=== PATIENT | female | born 1955 | race Two or more races ===

== ENCOUNTER 2021-06-08 20:04 | Emergency (ER) | payer MEDICAID, MEDICARE ==
[2021-06-08 21:17] VITALS: BP 153/79; PULSE 85; RESP 15; TEMP 97.8
--- NOTE | 2021-06-08 21:35 | XR ---
EXAMINATION TYPE: XR soft tissue neck DATE OF EXAM: 06/08/2021 COMPARISON: NONE HISTORY: Something stuck in the throat TECHNIQUE: 2 views FINDINGS: Cervical vertebra have normal alignment. Posterior elements are intact. There is some degen erative mild disc space narrowing at C5-6 with spurring. The epiglottis is normal. Prevertebral soft tissues are intact. Tonsils and adenoids appear normal. Subglottic trachea appears normal. IMPRESSION: Negative cervical soft tissue exam.
--- NOTE | 2021-06-08 22:41 | ED ---
ENT HPI - General Chief complaint: ENT Stated complaint: Sore Throat Time Seen by Provider: 06/08/21 22:21 Source: patient, RN notes reviewed Mode of arrival: ambulatory - History of Present Illness Initial comments: This is a 66-year-old female who presents to the emergency department with concerns of having something stuck in her throat. States that she ate chicken last night, and is worried that she may have a chicken bone stuck in her throat. She began experiencing this sensation this morning. Denies any difficulty breathing, difficulty swallowing, a sore throat, or pain with swallowing. She has had this sensation before, however no foreign bodies have been found in the throat. Reports some history of acid reflux, however she does not treat this. Denies any fevers, chills, abdominal pain, or nausea. MD complaint: foreign body Onset/Timin -: days(s) Location: throat Consistency: constant Improves with: none Worsens with: none - Related Data Home Medications Medication Instructions Recorded Confirmed FLUoxetine HCL [PROzac] 20 mg PO DAILY 10/27/15 10/27/15 Lisinopril-Hctz 20-12.5 mg 1 tab PO DAILY 10/27/15 10/27/15 [Zestoretic 20-12.5] Simvastatin [Zocor] 20 mg PO HS 10/27/15 10/27/15 hydrOXYzine pamoate [Vistaril] 50 mg PO HS 10/27/15 10/27/15 risperiDONE 1 mg PO HS 10/27/15 10/27/15 Previous Rx's Medication Instructions Recorded Atorvastatin [Lipitor] 20 mg PO HS #30 tab 10/31/15 FLUoxetine HCL [PROzac] 20 mg PO DAILY #30 cap 10/31/15 LORazepam [Ativan] 0.5 mg PO QID PRN #30 tab 10/31/15 risperiDONE [RisperDAL] 1 mg PO TID #90 tab 10/31/15 Allergies Allergy/AdvReac Type Severity Reaction Status Date / Time No Known Allergies Allergy Verified 06/08/21 21:12 Review of Systems ROS Statement: Those systems with pertinent positive or pertinent negative responses have been documented in the HPI. ROS Other: All systems not noted in ROS Statement are negative. Constitutional: Denies: fever, chills ENT: Denies: ear pain, throat pain Respiratory: Denies: cough, dyspnea Cardiovascular: Denies: chest pain, palpitations Gastrointestinal: Denies: abdominal pain, nausea, vomiting, diarrhea Skin: Denies: rash Neurological: Denies: headache Past Medical History Past Medical History: Hyperlipidemia, Hypertension History of Any Multi-Drug Resistant Organisms: None Reported Past Surgical History: Tubal Ligation Additional Past Surgical History / Comment(s): pin in left wrist Past Anesthesia/Blood Transfusion Reactions: No Reported Reaction Past Psychological History: Anxiety, Depression Smoking Status: Former smoker Past Alcohol Use History: None Reported Past Drug Use History: None Reported - Past Family History Father Additional Family Medical History / Comment(s): CABG, CAD in his 60s Mother Additional Family Medical History / Comment(s): No reported health issues mom 84 alive Brother(s) Family Medical History: No Reported History Sister(s) Family Medical History: Cancer (Gastrointestinal) Daughter(s) Family Medical History: No Reported History General Exam Limitations: no limitations General appearance: alert, in no apparent distress Head exam: Present: atraumatic, normocephalic, normal inspection ENT exam: Present: normal exam, normal oropharynx, mucous membranes moist Neck exam: Present: normal inspection. Absent: tenderness, meningismus, lymphadenopathy Respiratory exam: Present: normal lung sounds bilaterally. Absent: respiratory distress, wheezes, rales, rhonchi, stridor Cardiovascular Exam: Present: regular rate, normal rhythm, normal heart sounds. Absent: systolic murmur, diastolic murmur, rubs, gallop, clicks Neurological exam: Present: alert, oriented X3, CN II-XII intact Psychiatric exam: Present: normal affect, normal mood Skin exam: Present: warm, dry, intact, normal color. Absent: rash Course Vital Signs 06/08/21 21:13 Temperature 97.8 F Pulse Rate 85 Respiratory 15 Rate Blood Pressure 153/79 O2 Sat by Pulse 96 Oximetry Medical Decision Making - Medical Decision Making This is a 66-year-old female who presents to the emergency department with globus pharyngeus. X-ray of the soft tissue of the neck was obtained and revealed no abnormalities. Discussed with the patient that she may have silent reflux, causing the sensation. I offered the patient a dose of Zantac, however she declined due to the studies that have found a possible link to an increased risk of cancer. Patient declines any further workup, states that she simply wan kalpesh an x-ray of her neck. Return precautions reviewed in depth, the patient is instructed to return to the emergency department if symptoms worsen or do not improve. Patient verbalized understanding. This case was discussed in detail with the attending ED physician. Presentation, findings, and treatment plan discussed in detail as well. - Radiology Data Radiology results: report reviewed, image reviewed Disposition Clinical Impression: Globus pharyngeus Disposition: HOME SELF-CARE Instructions (If sedation given, give patient instructions): Pharyngitis (ED), Foreign Body in Pharynx (ED) Additional Instructions: Return to the emergency department if your symptoms worsen or do not improve. Follow-up with your primary care provider in 1 to 2 days. Is patient prescribed a controlled substance at d/c from ED?: No Referrals: None,Stated [Primary Care Provider] - 1-2 days
== END 2021-06-08 22:50 | disposition home or self-care (01) ==
LOC: EC 20:04
DX: F45.8 Other somatoform disorders (principal); I10 Essential (primary) hypertension; E78.5 Hyperlipidemia, unspecified; Z79.899 Other long term (current) drug therapy; Z87.891 Personal history of nicotine dependence
CPT/HCPCS: 70360; 99283

== ENCOUNTER → 2021-06-26 | Outpatient (CLI) | payer MEDICARE, MEDICAID ==
[2021-06-26 14:24] VITALS: BP 147/73; PULSE 81; RESP 16; TEMP 98.3
--- NOTE | 2021-06-26 15:20 | P.GSHP ---
History of Present Illness H&P Date: 06/26/21 Lissett is a 66 year old white female [facility] in [facility] regarding the radiographic abnormality in her right breast. She underwent a bilateral mammogram earlier this year on 332 which revealed an area of nodularity in the right breast for which further evaluation was recommended. No lesions of concern were identified in the left breast. Stable calcifications were seen in the right breast. The patient then underwent a right breast ultrasound on 332 which revealed a 0.2 x 0.2 cm lesion in the breast. This was not felt to correspond with a mammographic measurement of a 6 x 6 mm lesion and a stereotactic core biopsy of the nodular area was recommended. The patient does not feel any new lumps masses or nodules of concern in either breast. She is not complaining of any nipple discharge or skin changes. Caffiene: 2 cups coffee/day nicotine: stopped many years ago used to smoke 1/PPD chocolate: occasionally BCP: 10 years hormones: none Family History: patient: uterine cancer Hormonal History: menarche: 10 , breast fed: no, age at :18's menopause: 48 hormones: none Surgical History: hysterectomy done for cancer Medical History: HTN high cholesterol Social History: HEENT: Former smoker Alcohol: Negative Drugs: Negative - Constitutional Constitutional: Denies chills, Denies fever - EENT Eyes: denies blurred vision, denies pain Ears: bilateral: decreased hearing, tinnitus Ears, nose, mouth and throat: Denies headache, Denies sore throat - Breasts Breasts: bilateral: as per HPI - Cardiovascular Cardiovascular: Denies chest pain, Denies shortness of breath - Respiratory Respiratory: Denies cough, Denies 7 - Gastrointestinal Gastrointestinal: Denies abdominal pain, Denies diarrhea, Denies nausea, Denies vomiting - Genitourinary (Female) Genitourinary: Denies dysuria, Denies hematuria - Menstruation Menstruation: Reports post hysterectomy - Musculoskeletal Musculoskeletal: Denies myalgias - Integumentary Integumentary: Denies pruritus, Denies rash - Neurological Neurological: Denies numbness, Denies weakness - Psychiatric Psychiatric: Reports anxiety, Reports depression - Endocrine Endocrine: Denies fatigue, Denies weight change - Hematologic/Lymphatic Comment: none - Allergic/Immunologic Allergic/Immunologic: Reports as per HPI Past Medical History Past Medical History: Hyperlipidemia, Hypertension History of Any Multi-Drug Resistant Organisms: None Reported Past Surgical History: Tubal Ligation Additional Past Surgical History / Comment(s): pin in left wrist Past Anesthesia/Blood Transfusion Reactions: No Reported Reaction Past Psychological History: Anxiety, Depression Smoking Status: Former smoker Past Alcohol Use History: None Reported Past Drug Use History: None Reported - Past Family History Father Additional Family Medical History / Comment(s): CABG, CAD in his 60s Mother Additional Family Medical History / Comment(s): No reported health issues mom 84 alive Brother(s) Family Medical History: No Reported History Sister(s) Family Medical History: Cancer Daughter(s) Family Medical History: No Reported History Medications and Allergies Home Medications Medication Instructions Recorded Confirmed Type Lisinopril-Hctz 20-12.5 mg 1 tab PO DAILY 10/27/15 06/26/21 History [Zestoretic 20-12.5] Simvastatin [Zocor] 20 mg PO HS 10/27/15 06/26/21 History hydrOXYzine pamoate [Vistaril] 50 mg PO HS 10/27/15 06/26/21 History risperiDONE 1 mg PO HS 10/27/15 06/26/21 History Atorvastatin [Lipitor] 20 mg PO HS #30 tab 10/31/15 06/26/21 Rx LORazepam [Ativan] 0.5 mg PO QID PRN #30 tab 10/31/15 06/26/21 Rx risperiDONE [RisperDAL] 1 mg PO TID #90 tab 10/31/15 06/26/21 Rx Allergies Allergy/AdvReac Type Severity Reaction Status Date / Time No Known Allergies Allergy Verified 06/26/21 14:15 Surgical - Exam Vital Signs Temp Pulse Resp BP Pulse Ox 98.3 F 81 16 147/73 97 06/26/21 14:18 06/26/21 14:18 06/26/21 14:18 06/26/21 14:18 06/26/21 14:18 BMI: 30.9 - General no distress - Eyes normal ocular movement - Neck trachea midline - Respiratory normal respiratory effort, clear to auscultation - Cardiovascular Rhythm: regular Heart Sounds: normal: S1, S2 - Abdomen Abdomen: soft - Integumentary normal turgor - Neurologic no disoriented, no combative - Musculoskeletal normal gait - Psychiatric oriented to time, oriented to person, oriented to place, speech is normal, memory intact Breast Exam: BRA: does not wear one inspection: Bilateral grade 3 ptosis, breast approximately at DD Palpation: Right breast: multi-positional exam fibrocystic changes or dominant masses or nodules of concern Right axilla: No adenopathy of concern Left breast: Positional exam fibrocystic changes no dominant masses or nodules of concern Left axilla: No adenopathy of concern Results Mammogram and ultrasound reviewed with Dr. Jones Assessment and Plan Assessment: Impression: Abnormal right breast mammogram with nodularity noted not seen to be concordant with ultrasound findings Fibrocystic breast changes Plan: Stereotactic core biopsy of nodule of concern and right breast Follow-up nodule seen on ultrasound with 6 month ultrasound study; nodule does not appear to be that which is seen on the mammogram this was reviewed with Dr. Jones Request prior mammograms to evaluate calcifications noted on mammogram of 3322 CC: [facility] a stereotactic core biopsy discussed with the patient. She understands and wishes to proceed
== END | disposition home or self-care (01) ==
LOC: WWCWWP 13:47
PROVIDERS: ATTEND Surgery
DX: Z53.9 Procedure and treatment not carried out, unspecified reason (principal)

== ENCOUNTER → 2021-07-23 | Day surgery (SDC) | payer MEDICARE, OTHER ==
[2021-07-23 07:30] VITALS: BP 134/74; PULSE 81; RESP 16; TEMP 98
--- NOTE | 2021-07-23 08:36 | P.PN ---
Progress Note - Text Progress Note Date: 07/23/21 The patient was scheduled for a stereotactic core biopsy of the right breast today. The procedure was canceled as the nodule which was to be biopsied was not able to be seen. She will have a repeat right breast mammogram in 6 months with an appointment at that time.
--- NOTE | 2021-07-23 13:46 | MM ---
The patient was scheduled for a stereotactic core biopsy of the right breast today. The procedure was canceled as the nodule which was to be biopsied was not able to be seen. She will have a repeat right breast mammogram in 6 months with an appointment at that time. DOUG
== END ==
LOC: RADMAMWWP 07:00
PROVIDERS: ATTEND Surgery
DX: R92.8 Other abnormal and inconclusive findings on diagnostic imaging of breast (principal); Z53.8 Procedure and treatment not carried out for other reasons

== ENCOUNTER 2021-07-29 09:49 | Emergency (ER) | payer MEDICARE, OTHER ==
[2021-07-29 09:56] VITALS: RESP 16
--- NOTE | 2021-07-29 10:27 | ED ---
General Adult HPI - General Chief complaint: Psychiatric Symptoms Stated complaint: Mental Health Eval Time Seen by Provider: 07/29/21 10:09 Source: patient, RN notes reviewed, old records reviewed Mode of arrival: wheelchair Limitations: no limitations - History of Present Illness Initial comments: 66-year-old female brought in for mental health evaluation. She has been petitioned for evaluation. She apparently has not been taking her medication as prescribed. She has not been sleeping. Patient admits to making homicidal statements but is unwilling to tell me who these were directed towards. She denies suicidal thoughts. Denies physical complaint. - Related Data Home Medications Medication Instructions Recorded Confirmed Lisinopril-Hctz 20-12.5 mg 1 tab PO DAILY 10/27/15 07/29/21 [Zestoretic 20-12.5] Atorvastatin [Lipitor] 20 mg PO HS 07/29/21 07/29/21 Calcium Carbonate [Calcium] 600 mg PO DAILY 07/29/21 07/29/21 Cholecalciferol [Vitamin D3 (25 25 mcg PO DAILY 07/29/21 07/29/21 Mcg = 1000 Iu)] Cyanocobalamin (Vitamin B-12) 1,000 mcg PO DAILY 07/29/21 07/29/21 [Vitamin B-12] Allergies Allergy/AdvReac Type Severity Reaction Status Date / Time No Known Allergies Allergy Verified 07/29/21 11:11 Review of Systems ROS Statement: Those systems with pertinent positive or pertinent negative responses have been documented in the HPI. ROS Other: All systems not noted in ROS Statement are negative. Past Medical History Past Medical History: Hyperlipidemia, Hypertension History of Any Multi-Drug Resistant Organisms: None Reported Past Surgical History: Tubal Ligation Additional Past Surgical History / Comment(s): pin in left wrist Past Anesthesia/Blood Transfusion Reactions: No Reported Reaction Past Psychological History: Anxiety, Depression Smoking Status: Former smoker Past Alcohol Use History: None Reported Past Drug Use History: None Reported - Past Family History Father Additional Family Medical History / Comment(s): CABG, CAD in his 60s Mother Additional Family Medical History / Comment(s): No reported health issues mom 84 alive Brother(s) Family Medical History: No Reported History Sister(s) Family Medical History: Cancer Daughter(s) Family Medical History: No Reported History General Exam Limitations: no limitations General appearance: alert, in no apparent distress Head exam: Present: atraumatic, normocephalic Eye exam: Present: normal appearance, PERRL ENT exam: Present: normal exam Neck exam: Present: normal inspection. Absent: tenderness, meningismus Respiratory exam: Present: normal lung sounds bilaterally. Absent: respiratory distress, wheezes Cardiovascular Exam: Present: regular rate, normal rhythm GI/Abdominal exam: Present: soft. Absent: distended, tenderness, guarding Neurological exam: Present: alert, normal gait. Absent: motor sensory deficit Psychiatric exam: Present: flat affect, homicidal ideation, other (Paranoid) Skin exam: Present: warm, dry, intact. Absent: cyanosis, diaphoretic Course Vital Signs 07/29/21 09:53 Temperature 98 F Pulse Rate 86 Respiratory 16 Rate Blood Pressure 154/84 O2 Sat by Pulse 98 Oximetry - Reevaluation(s) Reevaluation #1: 07/29/21 10:26 Patient is medically cleared for EPS. Medical Decision Making - Medical Decision Making 66-year-old female who had presented under court order petitioned. Patient has been calm and cooperative in the emergency department. She denies suicidal thoughts. She was evaluated by EPS in the case is discussed with the psychiatrist. [place] to be safe for discharge. She should follow-up as an outpatient. - Lab Data Lab Results 07/29/21 Range/Units 10:46 Urine Opiates Screen Not Detected (NotDetected) Ur Oxycodone Screen Not Detected (NotDetected) Urine Methadone Screen Not Detected (NotDetected) Ur Propoxyphene Screen Not Detected (NotDetected) Ur Barbiturates Screen Not Detected (NotDetected) U Tricyclic Antidepress Not Detected (NotDetected) Ur Phencyclidine Scrn Not Detected (NotDetected) Ur Amphetamines Screen Not Detected (NotDetected) U Methamphetamines Scrn Not Detected (NotDetected) U Benzodiazepines Scrn Not Detected (NotDetected) Urine Cocaine Screen Not Detected (NotDetected) U Marijuana (THC) Screen Not Detected (NotDetected) Disposition Clinical Impression: Depression Disposition: HOME SELF-CARE Condition: Fair Instructions (If sedation given, give patient instructions): Depression (ED) Additional Instructions: Please follow up with community mental health. Is patient prescribed a controlled substance at d/c from ED?: No Referrals: [facility] [Primary Care Provider] - 1-2 days Time of Disposition: 14:29
[2021-07-29 11:04] LABS: Amphetamine Screen,Urine Not Detected (NotDetected); Barbiturate Screen,Urine Not Detected (NotDetected); Benzodiazepines Screen,Urine Not Detected (NotDetected); Cocaine Screen,Urine Not Detected (NotDetected); Methadone Screen, Urine Not Detected (NotDetected); Opiate Screen,Urine Not Detected (NotDetected); Oxycodone Screen, Urine Not Detected (NotDetected); Phencyclidine Screen,Urine Not Detected (NotDetected); Tricyclic Antidepressant,Urine Not Detected (NotDetected); Urn Cannabinoid Scrn Not Detected (NotDetected)
[2021-07-29 14:40] VITALS: BP 190/81; PULSE 83; TEMP 97
== END 2021-07-29 14:40 | disposition home or self-care (01) ==
LOC: EC 09:49 → SUPCPDRO 09:49 → EC 14:40
DX: F32.A Depression, unspecified (principal); I10 Essential (primary) hypertension; Z87.891 Personal history of nicotine dependence
CPT/HCPCS: 80306; 82075; 99284

== ENCOUNTER → 2024-03-12 | Outpatient (CLI) | payer MEDICARE, OTHER ==
--- NOTE | 2024-03-13 15:10 | MM ---
Reason for Exam: Screening (asymptomatic). Last mammogram was performed 1 year(s) and 7 month(s) ago. Patient History: Menarche at age 14. First Full-Term at age 19. Left ovary removed at age 63. Right ovary removed at age 63. Hysterectomy at age 63. Postmenopausal. 07/23/2021, MG discontinued stereo core RT on the right side. Sister had breast cancer. Risk Values: Catrachita 5 year model risk: 3.0%. NCI Lifetime model risk: 8.7%. Prior Study Comparison: 11/18/2020 Bilateral MG screening mammo w CAD - 2, [facility]. 11/25/2020 Right Diagnostic Mammogram, [facility]. 08/02/2022 Bilateral MG 3D diag mammo w/cad PAT, [facility]. Tissue Density: The breasts are heterogeneously dense, which may obscure small masses. Findings: Analyzed By CAD. There is no suspicious group of microcalcifications or new suspicious mass in either breast. Overall Assessment: Benign, BI-RAD 2 Management: Screening Mammogram of both breasts in 1 year. . Patient should continue monthly self-breast exams. A clinical breast exam by your physician is recommended on an annual basis. This exam should not preclude additional follow-up of suspicious palpable abnormalities. Note on Catrachita scores and lifetime risk: 1. A Catrachita score greater than 3% is considered moderate risk. If this is the case, consider specialist referral to assess eligibility for a risk reducing agent. 2. If overall lifetime risk for the development of breast cancer is 20% or higher, the patient may qualify for future screening with alternating mammogram and breast MRI. [facility], , 03/13/2024 3:07 PM. Electronically signed and approved by: Colin Garcia M.D. Radiologis
== END | disposition home or self-care (01) ==
LOC: RADMAMWWP 13:43
PROVIDERS: ATTEND Family Medicine
DX: Z12.31 Encounter for screening mammogram for malignant neoplasm of breast (principal); Z90.722 Acquired absence of ovaries, bilateral; Z78.0 Asymptomatic menopausal state; Z80.3 Family history of malignant neoplasm of breast; R92.333 Mammographic heterogeneous density, bilateral breasts
CPT/HCPCS: 77063; 77067

== ENCOUNTER → 2024-08-08 | Outpatient (CLI) | payer MEDICARE, OTHER ==
--- NOTE | 2024-08-08 16:14 | CT ---
EXAMINATION TYPE: CT abdomen pelvis wo con DATE OF EXAM: 08/08/2024 COMPARISON: None CLINICAL INDICATION: Female, 69 years old with history of Z08 ENCNTR FOR FOLLOW-UP EXAM AFTER TRTMT F OR COLIN; [facility], f/u endometrial ca TECHNIQUE: CT scan of the abdomen and pelvis is performed without oral or IV contrast. CT DLP: 1029.[address] CTDI: mGy Automated exposure control for dose reduction was used. FINDINGS: Within the limitations of a non-contrast study, the following observations are made. The lungs are clear. Gallbladder is normal and there is no gallstone, wall thickening, pericholecystic fluid or distention . There is no biliary ductal dilatation. There is no organomegaly of the liver, pancreas, spleen or adrenal glands. There are no renal calcifications or hydronephrosis. 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 The bowel loops are normal in caliber is no evidence of obstruction. No inflammatory changes are iden tified in the mesentery and there is no free intraperitoneal air or fluid. There is no pelvic mass, free fluid, abscess or adenopathy. There is surgical absence of the uterus. The osseous structures and soft tissues are unremarkable. IMPRESSION: No evidence of recurrent or metastatic neoplasm. Exam is limited secondary to lack of IV contrast. [facility], , 08/08/2024 4:12 PM
== END | disposition home or self-care (01) ==
LOC: RADCTMAIN 14:51
PROVIDERS: ATTEND Obstetrics & Gynecology
DX: Z08 Encounter for follow-up examination after completed treatment for malignant neoplasm (principal); Z85.42 Personal history of malignant neoplasm of other parts of uterus
CPT/HCPCS: 74176